=== PATIENT | male | born 1980 | race Caucasian/White ===

== ENCOUNTER 2021-10-23 01:22 | Observation (INO) ==
[2021-10-23] MEDS ORDERED: Naloxone 0.4 MG/ML INJ IVP PRN (03:40)
[2021-10-23] MEDS ORDERED: Melatonin 3 MG TABLET PO PRN (03:40)
[2021-10-23] MEDS ORDERED: Ondansetron 4 MG/2 ML VIAL IVP PRN (03:40)
[2021-10-23] MEDS: Pantoprazole 40 MG VIAL IVP SCH ×2 (04:41→17:29)
[2021-10-23] MEDS ORDERED: 0.9 % Sodium Chloride 1,000 ML IVC SCH (04:45)
[2021-10-23 05:37] LABS: Basophils % 0.4 %; Eosinophils % 0.1 %; Hematocrit 40.1 % (37.5-50.1); Hemoglobin 14.3 g/dL (12.9-16.9); Immature Granulocytes % 0.5 % (0-4); Lymphocytes # 1.1 K/mcL (0.6-4.6); Lymphocytes % 10.3 %; Mean Corpuscular HGB Conc 35.7 g/dL (31.6-35.5); Mean Corpuscular Hemoglobin 31.2 pg (28.0-33.3); Mean Corpuscular Volume 87.4 fL (83.0-100.0); Mean Platelet Volume 9.3 fL (9.4-12.4); Monocytes # 0.9 K/mcL (0.0-1.3); Monocytes % 8.6 %; Neutrophils # 8.4 K/mcL (1.6-8.9); Platelet Count 339 K/mcL (140-400); Red Blood Count 4.59 M/mcL (4.19-5.50); Red Cell Distribution Width 14.6 % (11.5-14.5); Segmented Neutrophils % 80.1 %; White Blood Count 10.5 K/mcL (4.3-11.1)
[2021-10-23 05:47] LABS: Prothrombin Time 21.8 Seconds (9.4-12.1)
[2021-10-23 07:00] LABS: Alanine Aminotransferase 21 Units/L (7-52); Albumin 3.4 g/dL (3.5-5.7); Alkaline Phosphatase 46 Units/L (34-104); Aspartate Amino Transferase 20 Units/L (13-39); BUN/Creatinine Ratio 26 (6-26); Bilirubin,Total 0.1 mg/dL (0.3-1.0); Blood Urea Nitrogen 30 mg/dL (6-20); Calcium 7.2 mg/dL (8.6-10.3); Carbon Dioxide 21 mEq/L (23-29); Chloride 101 mEq/L (98-107); Globulin 1.7 g/dL (2.4-3.5); Glucose 90 mg/dL (70-105); Osmolality,Calculated 280 (280-300); Potassium 3.4 mEq/L (3.5-5.1); Sodium 132 mEq/L (136-145); Total Protein 5.1 g/dL (6.4-8.9); eGFR For African Americans > 60 (> 60); eGFR For Non-African Americans > 60 (> 60)
[2021-10-23] MEDS ORDERED: Ibuprofen 400 MG TABLET PO PRN (10:05)
[2021-10-24 06:50] LABS: Hemoglobin 14.2 g/dL (12.9-16.9); Mean Corpuscular HGB Conc 34.6 g/dL (31.6-35.5); Mean Corpuscular Hemoglobin 30.3 pg (28.0-33.3); Mean Corpuscular Volume 87.4 fL (83.0-100.0); Mean Platelet Volume 9.1 fL (9.4-12.4); Platelet Count 319 K/mcL (140-400); Red Blood Count 4.69 M/mcL (4.19-5.50); Red Cell Distribution Width 14.7 % (11.5-14.5); White Blood Count 5.8 K/mcL (4.3-11.1)
[2021-10-24 07:05] LABS: BUN/Creatinine Ratio 17 (6-26); Blood Urea Nitrogen 13 mg/dL (6-20); Calcium 7.9 mg/dL (8.6-10.3); Carbon Dioxide 28 mEq/L (23-29); Chloride 106 mEq/L (98-107); Glucose 81 mg/dL (70-105); Osmolality,Calculated 287 (280-300); Potassium 2.9 mEq/L (3.5-5.1); Sodium 139 mEq/L (136-145); eGFR For African Americans > 60 (> 60); eGFR For Non-African Americans > 60 (> 60)
[2021-10-24 09:36] LABS: Phosphorous 2.1 mg/dL (2.7-4.5)
[2021-10-24] MEDS: hydrALAZINE 10 MG TABLET PO PRN (19:44)
[2021-10-25 03:32] LABS: Hematocrit 45.1 % (37.5-50.1); Hemoglobin 15.2 g/dL (12.9-16.9); Mean Corpuscular HGB Conc 33.7 g/dL (31.6-35.5); Mean Corpuscular Hemoglobin 30.6 pg (28.0-33.3); Mean Corpuscular Volume 90.9 fL (83.0-100.0); Platelet Count 370 K/mcL (140-400); Red Blood Count 4.96 M/mcL (4.19-5.50); Red Cell Distribution Width 14.6 % (11.5-14.5); White Blood Count 8.4 K/mcL (4.3-11.1)
[2021-10-25 03:50] LABS: BUN/Creatinine Ratio 13 (6-26); Blood Urea Nitrogen 11 mg/dL (6-20); Calcium 9.1 mg/dL (8.6-10.3); Carbon Dioxide 33 mEq/L (23-29); Chloride 103 mEq/L (98-107); Glucose 95 mg/dL (70-105); Osmolality,Calculated 289 (280-300); Potassium 3.2 mEq/L (3.5-5.1); Sodium 140 mEq/L (136-145); eGFR For African Americans > 60 (> 60); eGFR For Non-African Americans > 60 (> 60)
[2021-10-25 11:38] VITALS: BP 184/113; PULSE 72; TEMP 98.1; O2SAT 97
[2021-10-25] MEDS: hydrALAZINE 10 MG TABLET PO PRN (12:10)
== END 2021-10-25 13:58 | disposition home or self-care (01) ==
LOC: 3ANU → SUATTDRO 03:16
PROVIDERS: ADMIT Internal Medicine; ATTEND Family Medicine